=== PATIENT | male | born 1995 | race Caucasian/White ===

== ENCOUNTER 2016-05-23 22:22 | Day surgery (SDC) | payer OTHER ==
[~2016-05-23] VITALS: Ht 188 cm; Wt 100.9 kg
[~2016-05-23 22:22] MED LIST: ACTICLATE150 MG PO; BACTRIM,SEPT1 TABLET PO; BENTYL10 MG PO; CARAFATE1 GM PO; CIPRO500 MG PO; DOCUSATE SODIU100 MG PO; DOXYCYCLINE HY100 MG PO; DOXYCYCLINE HY150 MG PO; EYE ALLERGY REL15 ML BOTH EYES; KEFLEX500 MG PO; MAGIC MOUTHWASH1 ML MM; MIRALAX255 GM PO; NOHOMEMEDS; PEPCID20 MG PO; PERCOCET 5/31 TABLET PO; PROMETHAZINE HC25 M1 PO; PROZAC20 MG PO; RECTIV30 GM PR; REMERON15 M2 PO; VENTOLIN HFA18 GM IH; ZOFRAN ODT4 MG PO; ZOFRAN4 MG PO
[2016-05-24 00:30] LABS: ADD MIUA? NO; BILIRUBIN NEGATIVE; BLOOD NEGATIVE; COLOR YELLOW ((YELLOW)); GLUCOSE (STRIP) NEGATIVE; KETONES NEGATIVE; LEUKOCYTES NEGATIVE; NITRITE NEGATIVE; PH, URINE 6.5 (5-8); PROTEIN (STRIP) NEGATIVE; SPECIFIC GRAVITY 1.015 (1.000-1.030); UCUL ADDED? NO; UROBILINOGEN 0.2 MG/DL (0.2-1.0)
[2016-05-24 00:52] LABS: HEMATOCRIT 40.4 % (38.0-50.0); MCH 28.8 PG (29.0-34.0); MCHC 34.9 G/DL (30.0-36.0); MCV 82.4 FL (86-99); PLATELET COUNT 184 K/uL (156-360); RBC DIS.WIDTH-CV 13.6 % (11.8-14.6); RBC DIS.WIDTH-SD 39.6 % (39-53); WHITE BLOOD COUNT 14.8 K/uL (4.1-10.2)
[2016-05-24] MEDS ORDERED: DAY TIME COLD-237 ML PO (00:56)
[2016-05-24 01:02] LABS: CHLORIDE 109 mEq/L (99-109); POTASSIUM 3.4 mEq/L (3.7-5.4); SODIUM 140 mEq/L (136-147)
[2016-05-24 01:03] LABS: GLUCOSE 115 mg/dL (70-99)
[2016-05-24 01:05] LABS: ANION GAP 8 MEQ/L (2-14)
[2016-05-24 01:07] LABS: GFR ESTIMATE (CALCULATED) > 59 mL/min/
[2016-05-24 01:08] LABS: UREA NITROGEN (BUN) 9 mg/dL (9-23)
[2016-05-24] MEDS ORDERED: PERCOCET 5/31 TABLET PO (05:08)
[2016-05-24] MEDS ORDERED: COLACE100 MG PO (05:08)
[2016-05-24] MEDS ORDERED: IBUPROFEN600 MG PO (05:09)
[2016-05-24 11:23] VITALS: BP 146/97
[2016-05-24 16:06] VITALS: BP 133/71
[2016-05-25] VITALS: BP 113/56
[2016-05-25 08:00] VITALS: BP 114/52
[2016-05-25 09:39] VITALS: BP 110/56
== END 2016-05-25 16:03 | disposition home or self-care (01) ==
LOC: EME 22:22 → EXP 22:22 → SDC 05-24 04:52 → EXP 05-24 04:52 → 2SOUTH 05-24 06:10 → 4SOUTH 05-24 06:10 → 2SOUTH 05-24 06:10 → 4SOUTH 05-24 08:25
PROVIDERS: Emergency Medicine
PROC: 0DTJ4ZZ Resection of Appendix, Percutaneous Endoscopic Approach (ICD-10-PCS; principal; 2016-05-24)
DX: K35.80 Unspecified acute appendicitis (principal)
CPT/HCPCS: 74177; 80048; 81003; 85027; 87086; 88304; 93005; 99281; 99285; G0378; J1170; J1335; J2175; J2250; J2405; J2710; J3010; J7030; J7050

== ENCOUNTER 2016-05-25 22:03 | Emergency (ER) | payer OTHER ==
[~2016-05-25] VITALS: Ht 188 cm; Wt 102.9 kg
[~2016-05-25 22:03] MED LIST changes: +COLACE100 MG PO; +DAY TIME COLD-237 ML PO; +IBUPROFEN600 MG PO
[2016-05-25 23:11] LABS: HEMATOCRIT 38.1 % (38.0-50.0); MCH 29.6 PG (29.0-34.0); MCHC 35.7 G/DL (30.0-36.0); MCV 82.8 FL (86-99); MEAN PLAT.VOLUME 10.3 uM^3 (9.0-12.4); PLATELET COUNT 209 K/uL (156-360); RBC DIS.WIDTH-CV 13.7 % (11.8-14.6); WHITE BLOOD COUNT 10.9 K/uL (4.1-10.2)
[2016-05-25 23:23] LABS: CHLORIDE 109 mEq/L (99-109); SODIUM 142 mEq/L (136-147)
[2016-05-25 23:25] LABS: GLUCOSE 128 mg/dL (70-99)
[2016-05-25 23:26] LABS: ANION GAP 12 MEQ/L (2-14)
[2016-05-25 23:27] LABS: TOTAL BILIRUBIN 0.3 mg/dL (0.0-1.0)
[2016-05-25 23:29] LABS: ALKALINE PHOSPHATASE 42 IU/L (3-129); GFR ESTIMATE (CALCULATED) > 59 mL/min/
[2016-05-25 23:30] LABS: POTASSIUM 4.3 mEq/L (3.7-5.4); UREA NITROGEN (BUN) 9 mg/dL (9-23)
[2016-05-26 00:02] LABS: ADD MIUA? YES; BILIRUBIN NEGATIVE; BLOOD MODERATE; COLOR YELLOW ((YELLOW)); GLUCOSE (STRIP) NEGATIVE; KETONES NEGATIVE; LEUKOCYTES NEGATIVE; NITRITE NEGATIVE; PROTEIN (STRIP) NEGATIVE; SPECIFIC GRAVITY 1.016 (1.000-1.030)
[2016-05-26 00:38] VITALS: BP 131/65
[2016-05-26 00:51] LABS: BACTERIA NONE SEEN; CASTS NONE SEEN /LPF; CRYSTALS NONE SEEN; EPITHELIAL CELLS RARE; MUCUS NONE SEEN; UCUL ADDED? NO; WHITE BLOOD CELLS RARE /HPF (0-5)
== END 2016-05-26 00:39 | disposition home or self-care (01) ==
LOC: EME 22:03
PROVIDERS: Emergency Medicine
PROC: 0T9B70Z Drainage of Bladder with Drainage Device, Via Natural or Artificial Opening (ICD-10-PCS; principal; 2016-05-25)
DX: G89.18 Other acute postprocedural pain (principal); R10.9 Unspecified abdominal pain; R33.8 Other retention of urine; Z46.6 Encounter for fitting and adjustment of urinary device; Z90.89 Acquired absence of other organs
CPT/HCPCS: 74176; 80053; 81003; 85027; 99281; 99284

== ENCOUNTER 2016-05-28 23:21 | Emergency (ER) | payer OTHER ==
[~2016-05-28] VITALS: Ht 188 cm; Wt 101.6 kg
[2016-05-28 23:55] LABS: ADD MIUA? YES; BILIRUBIN NEGATIVE; BLOOD SMALL; COLOR YELLOW ((YELLOW)); GLUCOSE (STRIP) NEGATIVE; KETONES NEGATIVE; LEUKOCYTES NEGATIVE; NITRITE NEGATIVE; PH, URINE 7.5 (5-8); PROTEIN (STRIP) TRACE; SPECIFIC GRAVITY 1.017 (1.000-1.030); UROBILINOGEN 0.2 MG/DL (0.2-1.0)
[2016-05-28 23:56] LABS: HEMATOCRIT 43.3 % (38.0-50.0); MCH 28.9 PG (29.0-34.0); MCHC 35.6 G/DL (30.0-36.0); MCV 81.4 FL (86-99); MEAN PLAT.VOLUME 10.1 uM^3 (9.0-12.4); PLATELET COUNT 263 K/uL (156-360); RBC DIS.WIDTH-CV 13.2 % (11.8-14.6); RBC DIS.WIDTH-SD 38.6 % (39-53); RED BLOOD COUNT 5.32 M/uL (4.00-5.50); WHITE BLOOD COUNT 9.5 K/uL (4.1-10.2)
[2016-05-29 00:03] LABS: CHLORIDE 105 mEq/L (99-109); POTASSIUM 3.9 mEq/L (3.7-5.4); SODIUM 140 mEq/L (136-147)
[2016-05-29 00:05] LABS: GLUCOSE 96 mg/dL (70-99)
[2016-05-29 00:06] LABS: ANION GAP 12 MEQ/L (2-14)
[2016-05-29 00:09] LABS: GFR ESTIMATE (CALCULATED) > 59 mL/min/
[2016-05-29 00:10] LABS: UREA NITROGEN (BUN) 14 mg/dL (9-23)
[2016-05-29 00:27] LABS: RED BLOOD CELLS 20-30 /HPF (0-5); WHITE BLOOD CELLS NONE SEEN /HPF (0-5)
[2016-05-29 00:28] LABS: CASTS PRESENT /LPF; FINE GRANULAR CASTS 0-5 /LPF; MUCUS NONE SEEN
[2016-05-29 00:32] LABS: BACTERIA RARE; CRYSTALS NONE SEEN; EPITHELIAL CELLS NONE SEEN; UCUL ADDED? NO
[2016-05-29] MEDS ORDERED: KEFLEX500 MG PO (02:50)
[2016-05-29 03:24] VITALS: BP 126/84
== END 2016-05-29 03:27 | disposition home or self-care (01) ==
LOC: EME 23:21
DX: R31.9 Hematuria, unspecified (principal); Z46.6 Encounter for fitting and adjustment of urinary device; Z98.890 Other specified postprocedural states; F17.200 Nicotine dependence, unspecified, uncomplicated
CPT/HCPCS: 74176; 80048; 81003; 85027; 99281; 99284

== ENCOUNTER 2016-07-27 20:09 | Emergency (ER) | payer OTHER ==
[~2016-07-27] VITALS: Ht 188 cm; Wt 102.8 kg
[2016-07-27 23:46] LABS: BILIRUBIN NEGATIVE; BLOOD NEGATIVE; COLOR YELLOW ((YELLOW)); GLUCOSE (STRIP) NEGATIVE; KETONES NEGATIVE; LEUKOCYTES NEGATIVE; NITRITE NEGATIVE; PROTEIN (STRIP) 30; SPECIFIC GRAVITY 1.026 (1.000-1.030); UROBILINOGEN 0.2 MG/DL (0.2-1.0)
[2016-07-27 23:49] LABS: ADD MIUA? NO; UCUL ADDED? NO
[2016-07-28 01:10] VITALS: BP 115/66
== END 2016-07-28 01:11 | disposition home or self-care (01) ==
LOC: EXP 20:09 → EME 20:09 → EXP 07-28 01:11
PROVIDERS: Physician Assistant
DX: R10.32 Left lower quadrant pain (principal); N50.82 Scrotal pain; R42 Dizziness and giddiness; Z98.890 Other specified postprocedural states; Z87.442 Personal history of urinary calculi; F17.200 Nicotine dependence, unspecified, uncomplicated
CPT/HCPCS: 76870; 81003; 99281; 99284

== ENCOUNTER 2017-02-23 12:01 | Emergency (ER) | payer OTHER ==
[~2017-02-23] VITALS: Ht 188 cm; Wt 102.2 kg
[2017-02-23 12:06] VITALS: BP 135/124
[2017-02-23 12:52] LABS: EOSINOPHIL (%) 1.5 % (0-5); EOSINOPHIL COUNT 0.2 K/uL (0-0.3); HEMATOCRIT 46.2 % (38.0-50.0); IMMATURE GRANULOCYTE (%) 0.4 % (0.0-0.7); IMMATURE GRANULOCYTE COUNT 0.1 K/uL; INSTRUMENT ABS NEUTROPHIL CT 7.5 K/uL; LYMPHOCYTE COUNT 2.8 K/uL (1.0-2.8); MCH 28.5 PG (29.0-34.0); MCHC 34.2 G/DL (30.0-36.0); MCV 83.2 FL (86-99); MEAN PLAT.VOLUME 9.9 uM^3 (9.0-12.4); MONOCYTE (%) 9.6 % (3-12); MONOCYTE COUNT 1.1 K/uL (0-0.8); NEUTROPHIL (%) 64.4 % (45-76); NEUTROPHIL COUNT 7.5 K/uL (1.8-6.4); PLATELET COUNT 200 K/uL (156-360); RBC DIS.WIDTH-SD 39.1 % (39-53); RED BLOOD COUNT 5.55 M/uL (4.00-5.50); WHITE BLOOD COUNT 11.6 K/uL (4.1-10.2)
[2017-02-23 13:00] LABS: CHLORIDE 104 mEq/L (99-109); POTASSIUM 3.5 mEq/L (3.7-5.4); SODIUM 141 mEq/L (136-147)
[2017-02-23 13:02] LABS: GLUCOSE 134 mg/dL (70-99)
[2017-02-23 13:03] LABS: ANION GAP 12 MEQ/L (2-14)
[2017-02-23 13:06] LABS: GFR ESTIMATE (CALCULATED) > 59 mL/min/
[2017-02-23 13:07] LABS: UREA NITROGEN (BUN) 9 mg/dL (9-23)
== END 2017-02-23 13:20 | disposition left against medical advice (07) ==
LOC: EME 12:01
DX: R50.9 Fever, unspecified (principal); Z53.21 Procedure and treatment not carried out due to patient leaving prior to being seen by health care provider
CPT/HCPCS: 80048; 83605; 85025

== ENCOUNTER 2017-06-15 17:27 | Emergency (ER) | payer OTHER ==
[~2017-06-15] VITALS: Ht 188 cm; Wt 111.3 kg
[2017-06-15 18:57] LABS: BASOPHIL (%) 0.5 % (0-1); BASOPHIL COUNT 0.1 K/uL (0-0.1); EOSINOPHIL (%) 1.4 % (0-5); EOSINOPHIL COUNT 0.2 K/uL (0-0.3); HEMOGLOBIN 16.1 G/DL (12.5-16.6); IMMATURE GRANULOCYTE (%) 0.5 % (0.0-0.7); LYMPHOCYTE (%) 39.7 % (15-42); LYMPHOCYTE COUNT 4.4 K/uL (1.0-2.8); MCH 29.3 PG (29.0-34.0); MCV 83.8 FL (86-99); MONOCYTE (%) 7.4 % (3-12); MONOCYTE COUNT 0.8 K/uL (0-0.8); NEUTROPHIL (%) 50.5 % (45-76); NEUTROPHIL COUNT 5.6 K/uL (1.8-6.4); PLATELET COUNT 256 K/uL (156-360); RBC DIS.WIDTH-CV 13.2 % (11.8-14.6); RBC DIS.WIDTH-SD 40.6 % (39-53); RED BLOOD COUNT 5.49 M/uL (4.00-5.50); WHITE BLOOD COUNT 11.1 K/uL (4.1-10.2)
[2017-06-15 19:05] LABS: CHLORIDE 104 mEq/L (99-109); POTASSIUM 3.8 mEq/L (3.7-5.4); SODIUM 140 mEq/L (136-147)
[2017-06-15 19:07] LABS: GLUCOSE 106 mg/dL (70-99)
[2017-06-15 19:11] LABS: GFR ESTIMATE (CALCULATED) > 59 mL/min/ (58.99-99999)
[2017-06-15 19:12] LABS: UREA NITROGEN (BUN) 9 mg/dL (9-23)
[2017-06-15 20:36] LABS: ERTH.SED.RATE 7 MM/HR (0-15)
[2017-06-15 21:21] VITALS: BP 117/60
== END 2017-06-15 21:22 | disposition home or self-care (01) ==
LOC: EME 17:27
PROVIDERS: Physician Assistant
DX: H92.01 Otalgia, right ear (principal); R59.0 Localized enlarged lymph nodes; M54.2 Cervicalgia; R42 Dizziness and giddiness; R11.0 Nausea; Z87.442 Personal history of urinary calculi; Z72.0 Tobacco use
CPT/HCPCS: 70450; 80048; 85025; 85652; 99281; 99284; J1885; J7030

== ENCOUNTER 2017-09-27 08:59 | Emergency (ER) | payer OTHER ==
[~2017-09-27] VITALS: Ht 188 cm; Wt 112.5 kg
[2017-09-27 09:49] LABS: HEMATOCRIT 43.7 % (38.0-50.0); HEMOGLOBIN 15.3 G/DL (12.5-16.6); MCV 82.9 FL (86-99); PLATELET COUNT 242 K/uL (156-360); RBC DIS.WIDTH-CV 13.2 % (11.8-14.6); RBC DIS.WIDTH-SD 39.4 % (39-53); RED BLOOD COUNT 5.27 M/uL (4.00-5.50); WHITE BLOOD COUNT 9.1 K/uL (4.1-10.2)
[2017-09-27 09:59] LABS: ALBUMIN 4.4 g/dL (3.2-4.8); CHLORIDE 105 mEq/L (99-109); POTASSIUM 4.3 mEq/L (3.7-5.4); SODIUM 138 mEq/L (136-147)
[2017-09-27 10:02] LABS: GLUCOSE 115 mg/dL (70-99); TOTAL PROTEIN 7.4 g/dL (6.4-8.3)
[2017-09-27 10:03] LABS: TOTAL BILIRUBIN 0.4 mg/dL (0.0-1.0)
[2017-09-27 10:05] LABS: ALKALINE PHOSPHATASE 59 IU/L (3-129); CREATININE 1.1 mg/dL (0.6-1.3); GFR ESTIMATE (CALCULATED) > 59 mL/min/ (58.99-99999)
[2017-09-27 10:06] LABS: UREA NITROGEN (BUN) 12 mg/dL (9-23)
[2017-09-27 10:07] LABS: AST (GOT) 21 IU/L (2-34)
[2017-09-27 10:08] LABS: ALT (GPT) 31 IU/L (3-49)
[2017-09-27 10:09] LABS: LIPASE 24 U/L (1.0-51.0)
[2017-09-27 10:17] LABS: APPEARANCE CLEAR ((CLEAR)); BILIRUBIN NEGATIVE; BLOOD NEGATIVE; COLOR STRAW ((YELLOW)); GLUCOSE (STRIP) NEGATIVE; KETONES NEGATIVE; LEUKOCYTES NEGATIVE; NITRITE NEGATIVE; PROTEIN (STRIP) NEGATIVE; SPECIFIC GRAVITY 1.006 (1.000-1.030); UCUL ADDED? NO; UROBILINOGEN 0.2 MG/DL (0.2-1.0)
[2017-09-27] MEDS ORDERED: BENTYL20 MG PO (11:20)
[2017-09-27 12:05] VITALS: BP 120/77
== END 2017-09-27 11:35 | disposition home or self-care (01) ==
LOC: EME 08:59
PROVIDERS: Nurse Practitioner Family
DX: R10.11 Right upper quadrant pain (principal); R14.0 Abdominal distension (gaseous); Z71.6 Tobacco abuse counseling; F17.210 Nicotine dependence, cigarettes, uncomplicated; Z87.442 Personal history of urinary calculi
CPT/HCPCS: 76705; 80053; 81003; 83690; 85027; 99281; 99285; J2765

== ENCOUNTER 2017-10-09 05:12 | Emergency (ER) | payer OTHER ==
[~2017-10-09] VITALS: Ht 185.4 cm; Wt 110.0 kg
[~2017-10-09 05:12] MED LIST changes: +BENTYL20 MG PO
[2017-10-09 05:38] LABS: HEMATOCRIT 45.8 % (38.0-50.0); HEMOGLOBIN 16.3 G/DL (12.5-16.6); MCH 29.4 PG (29.0-34.0); MCHC 35.6 G/DL (30.0-36.0); MCV 82.5 FL (86-99); PLATELET COUNT 202 K/uL (156-360); RBC DIS.WIDTH-CV 13.3 % (11.8-14.6); RBC DIS.WIDTH-SD 39.7 % (39-53); RED BLOOD COUNT 5.55 M/uL (4.00-5.50); WHITE BLOOD COUNT 10.7 K/uL (4.1-10.2)
[2017-10-09 05:50] LABS: CHLORIDE 106 mEq/L (99-109); POTASSIUM 3.8 mEq/L (3.7-5.4); SODIUM 139 mEq/L (136-147)
[2017-10-09 05:52] LABS: GLUCOSE 177 mg/dL (70-99)
[2017-10-09 05:56] LABS: CREATININE 1.2 mg/dL (0.6-1.3); GFR ESTIMATE (CALCULATED) > 59 mL/min/ (58.99-99999); UREA NITROGEN (BUN) 8 mg/dL (9-23)
[2017-10-09 05:59] LABS: TROP-I INTERPRETATION NEGATIVE; TROPONIN-I < 0.01 ng/mL (0.0-0.30)
[2017-10-09 07:39] LABS: APPEARANCE SL.HAZY ((CLEAR)); BILIRUBIN NEGATIVE; BLOOD NEGATIVE; COLOR YELLOW ((YELLOW)); GLUCOSE (STRIP) NEGATIVE; KETONES NEGATIVE; LEUKOCYTES NEGATIVE; NITRITE NEGATIVE; PROTEIN (STRIP) NEGATIVE; SPECIFIC GRAVITY 1.011 (1.000-1.030); UROBILINOGEN 0.2 MG/DL (0.2-1.0)
[2017-10-09 07:49] LABS: BACTERIA RARE /HPF; EPITHELIAL CELLS NONE SEEN /HPF; MUCUS 4+ /LPF; RED BLOOD CELLS 0-5 /HPF (0-5); UCUL ADDED? NO; WHITE BLOOD CELLS 0-5 /HPF (0-5)
[2017-10-09 07:52] LABS: AMPHETAMINE NEGATIVE (500 ng/mL); BARBITURATES NEGATIVE (200 ng/mL); BENZODIAZEPINES NEGATIVE (150 ng/mL); BUPRENORPHINE NEGATIVE (10 ng/mL); COCAINE NEGATIVE (150 ng/mL); METHADONE NEGATIVE (200 ng/mL); METHAMPHETAMINE NEGATIVE (500 ng/mL); OPIATES (MORPHINE) NEGATIVE (100 ng/mL); OXYCODONE NEGATIVE (100 ng/mL); PHENCYCLIDINE NEGATIVE (25 ng/mL); PROPOXYPHENE NEGATIVE (300 ng/mL); THC CANNABINOIDS NEGATIVE (50 ng/mL); TRICYCLIC ANTIDEPRESSANTS NEGATIVE (300 ng/mL)
[2017-10-09 10:37] LABS: TROP-I INTERPRETATION NEGATIVE; TROPONIN-I < 0.01 ng/mL (0.0-0.30)
[2017-10-09 11:36] VITALS: BP 108/64
== END 2017-10-09 11:40 | disposition home or self-care (01) ==
LOC: EME 05:12
PROVIDERS: Emergency Medicine
DX: R07.89 Other chest pain (principal); E86.1 Hypovolemia; R11.2 Nausea with vomiting, unspecified; K20.9 Esophagitis, unspecified; F17.200 Nicotine dependence, unspecified, uncomplicated; H54.8 Legal blindness, as defined in USA; Z90.49 Acquired absence of other specified parts of digestive tract; Z87.442 Personal history of urinary calculi; Z95.9 Presence of cardiac and vascular implant and graft, unspecified; Z91.018 Allergy to other foods; Z88.5 Allergy status to narcotic agent; Z91.02 Food additives allergy status
CPT/HCPCS: 71046; 71275; 80048; 81003; 84484; 85027; 85379; 93005; 99281; 99285; J1885; J2405; J7030